=== PATIENT | male | born 1985 | race Caucasian/White ===

== ENCOUNTER 2016-10-30 11:43 | Day surgery (SDC) | payer OTHER ==
[2016-10-30] MEDS ORDERED: ONDANSETRON HCL IV 4 MG/2 ML VIAL IVP ONE ×2 (11:46→14:00)
[2016-10-30] MEDS ORDERED: 0.9 % SODIUM CHLORIDE 1,000 ML BAG IV ONE ×2 (11:46→12:36)
--- NOTE | 2016-10-30 11:51 | Emergency Department Record ---
History of Present Illness - General Chief Complaint: Abdominal Pain Stated Complaint: ABD PAIN Time Seen by Provider: 10/30/16 11:45 Source: Patient Mode of Arrival: Ambulatory - History of Present Illness Initial Comments: 31yo male presents with nausea, vomiting, decreased appetite and RLQ pain. He was seen in the [facility] care and sent over for further evaluation. The onset of the symptoms was Sunday morning. He developed nausea, vomiting, and a mild pain in the RLQ. He did have one loose bowel movement at that time. The NV and pain have continued. No blood in either bowel movement or vomiting. No dysuria. MD Complaint: Abdominal pain -: Days(s) (2) Location: RLQ Radiation: RLQ Migration to: RLQ Severity: Moderate Quality: Aching Consistency: Constant Improves With: Rest Worsens With: Eating Associated Symptoms: Anorexia, Vomiting - Related Data Home Medications Medication Instructions Recorded Confirmed Last Taken No Home Med [NO HOME MEDS] 10/30/16 10/30/16 Unknown Allergies Allergy/AdvReac Type Severity Reaction Status Date / Time No Known Drug Allergies Allergy Verified 10/30/16 11:46 Review of Systems Constitutional: Reports: Fever (subjectively felt warm), Malaise. Denies: Chills Eyes: Denies: Eye discharge, Eye pain, Photophobia, Vision change ENT: Denies: Congestion, Throat pain Respiratory: Denies: Cough, Dyspnea, Hemoptysis, Stridor, Wheezes Cardiovascular: Denies: Chest pain, Palpitations, Syncope Endocrine: Reports: Fatigue Gastrointestinal: Reports: Abdominal pain, Diarrhea (once Sunday), Nausea, Vomiting Genitourinary: Denies: Dysuria, Frequency Musculoskeletal: Denies: Arthralgia, Back pain, Joint swelling, Myalgia Skin: Denies: Bruising, Change in color, Rash Neurological: Denies: Headache Psychiatric: Denies: Anxiety Hematological/Lymphatic: Denies: Blood Clots, Easy bleeding, Easy bruising, Swollen glands Past Medical History - SOCIAL HISTORY Smoking Status: Never smoker Alcohol Use: Occasional Drug Use: None - RESPIRATORY Hx Respiratory Disorders: No - CARDIOVASCULAR Hx Cardio Disorders: No - NEURO Hx Neuro Disorders: No - GI Hx GI Disorders: No - Hx Genitourinary Disorders: No - ENDOCRINE Hx Endocrine Disorders: No - MUSCULOSKELETAL Hx Musculoskeletal Disorders: No - PSYCH Hx Psych Problems: No - HEMATOLOGY/ONCOLOGY Hx Hematology/Oncology Disorders: No Family Medical History Any Significant Family History?: No Physical Exam - General General Appearance: Alert, Oriented x3, Cooperative, No acute distress Limitations: No limitations - Head Head exam: Normal inspection - Eye Eye exam: Normal appearance, PERRL. negative: Conjunctival injection, Periorbital swelling - ENT ENT exam: Normal exam Ear exam: Normal external inspection Nasal Exam: Normal inspection Mouth exam: Normal external inspection - Neck Neck exam: Normal inspection, Full ROM. negative: Tenderness - Respiratory Respiratory exam: Normal lung sounds bilaterally. negative: Respiratory distress - Cardiovascular Cardiovascular Exam: Regular rate, Normal rhythm, Normal heart sounds - GI/Abdominal GI/Abdominal exam: Soft, Guarding (RLQ), Tenderness (RLQ), Other (abdomen is very soft and non distended). negative: Distended - Rectal Rectal exam: Deferred - exam: Deferred - Extremities Extremities exam: Normal inspection, Full ROM, Normal capillary refill. negative: Tenderness - Back Back exam: Reports: Normal inspection, Full ROM. Denies: CVA tenderness (R), CVA tenderness (L), Muscle spasm, Rash noted, Tenderness - Neurological Neurological exam: Alert, Normal gait, Oriented X3 - Psychiatric Psychiatric exam: Normal affect, Normal mood - Skin Skin exam: Dry, Intact, Normal color, Warm Course - Reevaluation(s) Reevaluation #1: CT consistent with appendicitis without abscess. 10/30/16 12:35 Reevaluation #2: Dr Sierra has admitted the patient to the OR for acute appendicitis 10/30/16 12:45 Disposition Disposition: Admit Clinical Impression: Appendicitis Disposition: Still a Patient at [facility] Decision to Admit: Admit from ER Decision to Admit Date: 10/30/16 Decision to Admit Time: 12:36 Condition: (2) Stable Forms: Patient Portal Access Time of Disposition: 12:36 Quality - Quality Measures Quality Measures: N/A - Blood Pressure Screening View Details: Yes Blood Pressure Classification: Normal BP Reading Systolic Measurement: 117 Diastolic Measurement: 65 Screening for High Blood Pressure: < Normal BP, F/U Not Required > [G8783] Normal BP Follow-up Interventions: No follow-up required Pre-Hypertensive Follow-up Interventions: Referral to alternative/primary care provider.
[2016-10-30 12:19] LABS: URINE APPEARANCE CLEAR; URINE COLOR YELLOW
[2016-10-30 12:20] LABS: URINE BILIRUBIN NEGATIVE (NEGATIVE); URINE BLOOD NEGATIVE (NEGATIVE); URINE GLUCOSE (UA) NEGATIVE (NEGATIVE); URINE KETONE NEGATIVE (NEGATIVE); URINE LEUKOCYTE ESTERASE NEGATIVE (NEGATIVE); URINE NITRITE NEGATIVE (NEGATIVE); URINE PROTEIN NEGATIVE (NEGATIVE); URINE UROBILINOGEN 0.2 E.U./dL (0.20 - 1.00)
[2016-10-30] MEDS ORDERED: ERTAPENEM SODIUM 1 G in 0.9 % SODIUM CHLORIDE 100ML 100 ML IVPB ONE (12:33)
[2016-10-30] MEDS ORDERED: BUPIVACAINE 0.25% W/EPI MPF 30ML VIAL IVP ONE (14:00)
[2016-10-30] MEDS ORDERED: ROCURONIUM BROMIDE 50MG/5ML VIAL IV ONE (14:00)
[2016-10-30] MEDS ORDERED: MIDAZOLAM HCL 2MG/2ML VIAL IV ONE (14:00)
[2016-10-30] MEDS ORDERED: NEOSTIGMINE 1 MG/1 ML,10ML VIAL IV ONE (14:00)
[2016-10-30] MEDS ORDERED: LIDOCAINE 2% MDV (20MG/ML) 20ML VIAL IV ONE (14:00)
[2016-10-30] MEDS ORDERED: PROPOFOL 10 MG/ML VIAL IV ONE (14:00)
[2016-10-30] MEDS ORDERED: SEVOFLURANE 250 ML INH ONE (14:00)
[2016-10-30] MEDS ORDERED: FENTANYL PF 100MCG/2ML VIAL IV ONE (14:00)
[2016-10-30] MEDS ORDERED: GLYCOPYRROLATE 0.2 MG/ML ML IV ONE (14:00)
[2016-10-30] MEDS ORDERED: KETOROLAC 30 MG/ML VIAL IVP ONE (14:00)
[2016-10-30] MEDS ORDERED: SUCCINYLCHOLINE 20 MG/ML 10ML IVP ONE (14:00)
--- NOTE | 2016-10-31 20:18 | CT SCAN REPORT ---
EXAM: CT SCAN ABDOMEN/PELVIS WO CONTRAST HISTORY: RIGHT LOWER QUADRANT PAIN FOR THREE DAYS, NO BOWEL MOVEMENT IN THREE DAYS. NAUSEA AND VOMITING. ELEVATED WHITE BLOOD COUNT. TECHNIQUE: AXIAL CT SCAN OF THE ABDOMEN AND PELVIS PERFORMED WITHOUT ORAL OR IV CONTRAST AT THE REFERRING PHYSICIANS REQUEST. COMPARISON: NO PRIOR CT WITH WHICH TO COMPARE. FINDINGS: No calcified gallstones are seen within the gallbladder. There is a small calcification in the lower pole of the left kidney consistent with a single small nonobstructing intrarenal calculus. No hydronephrosis or hydroureter seen on either side with no ureteral calculus seen on either side and no bladder calculus evident. Evaluation of the bowel and viscera are very limited without oral or IV contrast. Given this limitation, no definite hepatic, splenic, adrenal, pancreatic, or renal mass identified. I believe the appendix is identified, appearing dilated measuring up to approximately 13 mm in diameter and there is considerable stranding in the adjacent soft tissues. Findings are consistent with acute appendicitis. There is some minimally prominent mesenteric nodes in the right lower quadrant, which are probably reactive. There is some mild patchy bibasilar streaky atelectasis or infiltrate. No basilar pneumothorax evident. There is an approximately 2.9 x 1.7 cm oval low-attenuation mass along the anterior aspect of the left upper quadrant, probably abutting the anterior peritoneum. This has a CT density of 2, although is incompletely evaluated without IV contrast. Given its oval low-attenuation appearance, this may just be an incidental cyst in this location. No free intraperitoneal air or free intraperitoneal fluid identified. Very small periumbilical anterior abdominal wall hernia containing adipose tissue but no bowel. IMPRESSION: 1. FINDINGS CONSISTENT WITH ACUTE APPENDICITIS. THERE ARE LIKELY SOME MILDLY PROMINENT REACTIVE RIGHT LOWER QUADRANT MESENTERIC NODES WELL. 2. SINGLE NONOBSTRUCTING LOWER POLE LEFT RENAL CALCULUS. 3. OVAL 2.9 X 2.7 CM LOW-ATTENUATION MASS ALONG THE ANTERIOR PERITONEUM IN THE LEFT UPPER QUADRANT, INCOMPLETELY EVALUATED, ALTHOUGH IT MAY JUST BE AN INCIDENTAL MESENTERIC CYST. 4. MILD BIBASILAR STREAKY ATELECTASIS OR INFILTRATE. JOB NUMBER: [id number] MTDD
--- NOTE | 2016-11-02 09:36 | Operative Note ---
DATE OF SURGERY: 10/30/2016 Surgeon: Devon Sierra DO Referring physician: Galina Taveras MD PREOPERATIVE DIAGNOSIS: Acute appendicitis. POSTOPERATIVE DIAGNOSIS: Acute appendicitis. OPERATION: Laparoscopic appendectomy. Anesthesia: General. Indication: The patient is a 31-year-old male who has had abdominal pain for about three days. This did settle in his right lower quadrant. Imaging studies as well as laboratory values were consistent with appendicitis. The patient had leukocytosis and CT scan findings consistent with the same. We did discuss appendectomy risks, benefits, and alternatives. The risks include bleeding, infection, postoperative abscess, injury to underlying visceral structures. He understood this fully. Therefore, consent was signed, questions were answered. PROCEDURE: He was taken to the operating room and placed in the supine position. General anesthesia was administered per the Department of Anesthesia. The patient's left arm was tucked to his side. His abdomen was shaved of hair and prepped and draped in the usual fashion. At this time adequate time-out was performed. He did receive preoperative antibiotics as well as . At this time, the infraumbilical region was anesthetized with a total of 5 mL of 0.25% Sensorcaine with epinephrine. A 2 cm infraumbilical incision was made. This was carried down to the anterior rectus fascia, this is excised. Carlos clamps were placed on the fascial edges and brought up into the wound. Stay stitches of 0 Vicryl placed. The posterior rectus sheath was identified and incised and the peritoneal cavity was entered bluntly. At this time, a 10 mm blunt Andreas port was placed and after pneumoperitoneum was established, under direct visualization an additional 5 mm right subcostal and a 5 mm suprapubic port placed. The patient was then rotated in Trendelenburg position, rotation to the left. General examination was done. The patient had dense inflammatory changes in the right mid abdomen. He had a retrocecal appendix which did require me taking down the lateral peritoneal in the right colon. Due to the patient's body habitus, I still had trouble seeing, therefore, an additional 5 mm port was placed. I was able to retract the colon medially, exposing the appendix and the mesoappendix. The mid part of the appendix was necrotic without rupture. This was then lifted anteriorly. The mesoappendix was taken down serially with the Brennon harmonic until the appendicial base was reached. This was transected with the Endo ALFONZO 60 mm stapling device. This was then placed in an EndoCatch bag and brought out infraumbilically. The right side was re-inspected, this was then irrigated and suctioned freely with about 500 mL of sterile saline. I did apply a FloSeal where I did mobilize the colon, due to some mild oozing. At this time, the patient did have a cyst, which was noted on CT scan just to the left of his falciform ligament. This was fluid filled and spongy. I did use the Brennon harmonic to drain this. This did completely resolve. At this time, the patient leveled out. Pneumoperitoneum was released. All ports removed, and the fascia was closed with 0 Vicryl in a [id number] fashion. The skin of all four ports closed with 4-0 Vicryl. He was taken to the recovery room in satisfactory condition. FINDINGS AT THE TIME OF SURGERY: Acute appendicitis. CC: Dr. Galina OBRIEN
== END 2016-10-30 15:05 | disposition home or self-care (01) ==
LOC: SUR 11:43 → ER 11:43 → EDSTATUS 12:50 → SUR 15:05
PROVIDERS: ATTEND Surgery
DX: K35.89 Other acute appendicitis (principal)
CPT/HCPCS: 99285 ×2; 96374; 96375; 96361; 81003; 74176; 44970; 00840; J1335; J1885; J2405; J3010; J0330; J2710; J7030

== ENCOUNTER 2018-02-19 08:52 | Emergency (ER) | payer MEDICAID, OTHER ==
[2018-02-19] MEDS ORDERED: ONDANSETRON HCL IV 4 MG/2 ML VIAL IV ONE (09:14)
[2018-02-19] MEDS ORDERED: 0.9 % SODIUM CHLORIDE 1,000 ML BAG IV ONE (09:14)
[2018-02-19 09:24] LABS: BASO % 0.4 % (0-6); EOS % 1.7 % (0-6); HEMATOCRIT 46.6 % (42.0-52.0); HEMOGLOBIN 15.6 gm/dl (14.0-18.0); LYMPH % 38.7 % (16-45); MEAN CELL VOLUME 86.5 fl (81-97); MEAN CORPUSCULAR HEMOGLOBIN 28.9 pg (27-33); MEAN CORPUSCULAR HGB CONC 33.5 g/dl (32-36); MEAN PLATELET VOLUME 10.6 fl (7.4-10.4); MONO % 9.2 % (0-9); PLATELET COUNT 321 K/uL (130-400); RED BLOOD COUNT 5.39 M/uL (4.40-5.70); RED CELL DISTRIBUTION WIDTH 13.1 % (11.5-14.5); WHITE BLOOD COUNT W/O DIFF 8.5 K/uL (4.2-12.2)
[2018-02-19 09:33] LABS: BLOOD UREA NITROGEN 14 mg/dL (6-20); EST GLOMERULAR FILTRATION RATE > 60 mL/min
[2018-02-19 09:36] LABS: GLUCOSE,RANDOM 127 mg/dL (74-109)
--- NOTE | 2018-02-19 09:38 | Emergency Department Record ---
History of Present Illness - General Chief Complaint: Abdominal Pain Stated Complaint: ABD PAIN Time Seen by Provider: 02/19/18 09:06 Source: Patient Mode of Arrival: Ambulatory Limitations: No limitations - History of Present Illness Initial Comments: pt had asudden onset of llq pain 2hrs [employer]. he vomited x2 and had a normal bm. pain is constant. MD Complaint: Abdominal pain Onset/Timin -: Hour(s) Location: LLQ Radiation: None Migration to: No migration Severity scale (1-10): 10 Quality: Sharp Consistency: Constant Improves With: Nothing Worsens With: Nothing Associated Symptoms: Nausea, Vomiting - Related Data Previous Rx's Medication Instructions Recorded Hydrocodone/Acetaminophen [Monroe 1 each PO Q6HR #10 tablet 02/19/18 5-325 Tablet] Ondansetron [Zofran Odt] 4 mg PO Q8H #10 tab.rapdis 02/19/18 Allergies Allergy/AdvReac Type Severity Reaction Status Date / Time No Known Drug Allergies Allergy Verified 10/30/16 11:46 Travel Screening - Travel/Exposure Within Last 30 Days Have you traveled within the last 30 days?: No Review of Systems Reviewed: No additional complaints except as noted below Constitutional: Reports: As per HPI. Denies: Chills, Fever, Malaise, Night sweats, Weakness, Weight change Eyes: Reports: As per HPI. Denies: Eye discharge, Eye pain, Photophobia, Vision change ENT: Reports: As per HPI. Denies: Congestion, Dental pain, Ear pain, Epistaxis , Hearing loss, Throat pain Respiratory: Reports: As per HPI. Denies: Cough, Dyspnea, Hemoptysis, Stridor, Wheezes Cardiovascular: Reports: As per HPI. Denies: Arrhythmia, Chest pain, Dyspnea on exertion, Edema, Murmurs, Orthopnea, Palpitations, Paroxysmal nocturnal dyspnea, Rheumatic Fever, Syncope Endocrine: Reports: As per HPI. Denies: Fatigue, Heat or cold intolerance, Polydipsia, Polyuria Gastrointestinal: Reports: As per HPI, Abdominal pain, Vomiting. Denies: Constipation, Diarrhea, Hematemesis, Hematochezia, Melena, Nausea Genitourinary: Reports: As per HPI. Denies: Dysuria, Frequency, Hematuria, Incontinence, Retention, Testicular pain, Testicular mass, Urgency Musculoskeletal: Reports: As per HPI. Denies: Arthralgia, Back pain, Gout, Joint swelling, Myalgia, Neck pain Skin: Reports: As per HPI. Denies: Bruising, Change in color, Change in hair/ nails, Lesions, Pruritus, Rash Neurological: Reports: As per HPI. Denies: Abnormal gait, Confusion, Headache, Numbness, Paresthesias, Seizure, Tingling, Tremors, Vertigo, Weakness Psychiatric: Reports: As per HPI. Denies: Anxiety, Auditory hallucinations, Depression, Homicidal thoughts, Suicidal thoughts, Visual hallucinations Hematological/Lymphatic: Reports: As per HPI. Denies: Anemia, Blood Clots, Easy bleeding, Easy bruising, Swollen glands Past Medical History - SOCIAL HISTORY Smoking Status: Never smoker - RESPIRATORY Hx Respiratory Disorders: No - CARDIOVASCULAR Hx Cardio Disorders: No - NEURO Hx Neuro Disorders: No - GI Hx GI Disorders: Yes Hx Abdominal Pain: Yes (Sharp RMQ since 10/28) Hx Nausea/Vomiting: Yes (Since 10/28) Comment:: Fatty liver found with muscle strain, Diarrhea on 10/28 - Hx Genitourinary Disorders: No - ENDOCRINE Hx Endocrine Disorders: No - MUSCULOSKELETAL Hx Musculoskeletal Disorders: No - PSYCH Hx Psych Problems: No - HEMATOLOGY/ONCOLOGY Hx Hematology/Oncology Disorders: No Family Medical History Any Significant Family History?: No Physical Exam - General General Appearance: Alert, Oriented x3, Cooperative, Mild distress - Head Head exam: Normal inspection - Eye Eye exam: Normal appearance, PERRL, EOMI Pupils: Normal accommodation - ENT ENT exam: Normal exam, Mucous membranes moist, Normal external ear exam, Normal orophraynx Ear exam: Normal external inspection. negative: External canal tenderness Nasal Exam: Normal inspection. negative: Discharge, Sinus tenderness Mouth exam: Normal external inspection, Tongue normal Teeth exam: Normal inspection. negative: Dental caries Throat exam: Normal inspection. negative: Tonsillar erythema, Tonsillar exudate - Neck Neck exam: Normal inspection, Full ROM. negative: Tenderness - Respiratory Respiratory exam: Normal lung sounds bilaterally. negative: Respiratory distress - Cardiovascular Cardiovascular Exam: Regular rate, Normal rhythm, Normal heart sounds - GI/Abdominal GI/Abdominal exam: Soft, Normal bowel sounds, Tenderness (llq) - Rectal Rectal exam: Deferred - exam: Deferred - Extremities Extremities exam: Normal inspection, Full ROM, Normal capillary refill. negative: Tenderness - Back Back exam: Reports: Normal inspection, Full ROM. Denies: Muscle spasm, Rash noted, Tenderness - Neurological Neurological exam: Alert, CN II-XII intact, Normal gait, Oriented X3 - Psychiatric Psychiatric exam: Normal affect, Normal mood - Skin Skin exam: Dry, Intact, Normal color, Warm Course Vital Signs 02/19/18 08:54 Temperature 97.3 F L Pulse Rate 67 Respiratory 18 Rate Blood Pressure 117/48 Pulse Ox 99 - Reevaluation(s) Reevaluation #1: 02/19/18 10:36 pt feels better Reevaluation #2: 02/19/18 11:56 pt feels much better. Medical Decision Making - Lab Data Result diagrams: 02/19/18 09:10 02/19/18 09:10 Lab Results 02/19/18 02/19/18 Range/Units 09:10 09:10 WBC 8.5 (4.2-12.2) K/uL RBC 5.39 (4.40-5.70) M/uL Hgb 15.6 (14.0-18.0) gm/dl Hct 46.6 (42.0-52.0) % MCV 86.5 (81-97) fl MCH 28.9 (27-33) pg MCHC 33.5 (32-36) g/dl RDW 13.1 (11.5-14.5) % Plt Count 321 (130-400) K/uL MPV 10.6 H (7.4-10.4) fl Gran % 50.0 (47-80) % Lymphocytes % 38.7 (16-45) % Monocytes % 9.2 H (0-9) % Eosinophils % 1.7 (0-6) % Basophils % 0.4 (0-6) % BUN 14 (6-20) mg/dL Creatinine 1.0 (0.7-1.2) mg/dL Estimated GFR > 60 mL/min Calcium 9.3 (8.6-10.0) mg/dL Disposition Disposition: Discharge Clinical Impression: Renal lithiasis Abdominal pain Qualifiers: Abdominal location: left lower quadrant Qualified Code(s): R10.32 - Left lower quadrant pain Vomiting Qualifiers: Vomiting type: unspecified Vomiting Intractability: non-intractable Nausea presence: with nausea Qualified Code(s): R11.2 - Nausea with vomiting, unspecified Hematuria Qualifiers: Hematuria type: unspecified type Qualified Code(s): R31.9 - Hematuria, unspecified Disposition: Home, Self-Care Condition: (1) Good Instructions: Kidney Stones (ED), How to Strain Your Urine (ED), Acute Nausea and Vomiting (ED), Hematuria (ED) Additional Instructions: follow up with family doctor and with urologist. push fluids. return sooner if worse Prescriptions: Hydrocodone/Acetaminophen [Monroe 5-325 Tablet] 1 each PO Q6HR #10 tablet Ondansetron [Zofran Odt] 4 mg PO Q8H #10 tab.rapdis Referrals: FLAQUITO CHOWDARY M.D. [MEDICAL DOCTOR] - [facility] [Provider Group] Forms: Patient Portal Access Quality - Quality Measures Quality Measures: N/A - Blood Pressure Screening Does Patient Have Any of the Following: No Blood Pressure Classification: Normal BP Reading Systolic Measurement: 117 Diastolic Measurement: 48 Screening for High Blood Pressure: < Normal BP, F/U Not Required > [G8783]
[2018-02-19] MEDS ORDERED: ONDANSETRON HCL IV 4 MG/2 ML VIAL IVP ONE (09:59)
[2018-02-19 10:44] LABS: URINE APPEARANCE CLEAR; URINE BILIRUBIN NEGATIVE (NEGATIVE); URINE BLOOD LARGE (NEGATIVE); URINE COLOR YELLOW; URINE GLUCOSE (UA) NEGATIVE (NEGATIVE); URINE KETONE NEGATIVE (NEGATIVE); URINE LEUKOCYTE ESTERASE NEGATIVE (NEGATIVE); URINE NITRITE NEGATIVE (NEGATIVE); URINE PROTEIN TRACE (NEGATIVE); URINE UROBILINOGEN 0.2 E.U./dL (0.20 - 1.00)
[2018-02-19 10:53] LABS: URINE EPITHELIAL CELLS 0 - 2 (FEW); URINE MUCUS LIGHT; URINE RBC 21 - 35 (NONE SEEN); URINE WBC NONE SEEN (0-2/hpf)
[2018-02-19] MEDS ORDERED: KETOROLAC 30 MG/ML VIAL IVP ONE (11:02)
[2018-02-19] MEDS ORDERED: PROMETHAZINE HCL 12.5 MG in 0.9 % SODIUM CHLORIDE 100ML 100 ML IVPB ONE (11:02)
--- NOTE | 2018-02-19 13:04 | CT SCAN REPORT ---
EXAM: CT OF THE ABDOMEN AND PELVIS WITHOUT CONTRAST HISTORY: ABDOMINAL PAIN. TECHNIQUE: Sequential axial images were obtained from the diaphragms through the ischiorectal fossa without intravenous or oral contrast administration. Comparison: 10/30/16. FINDINGS: The visualized lung bases appear normal. There is cardiomegaly without pericardial effusion. The liver, gallbladder, pancreas and spleen appear normal. The adrenal glands and kidneys appear normal. There is a nonobstructing calculus in the left renal pelvis measuring 3 mm. No additional calculi are appreciated. Postop surgical change consistent with appendectomy. Small and large bowel appears normal. The osseous structures are normal. IMPRESSION: 3 MM NONOBSTRUCTING CALCULUS IN THE LEFT RENAL PELVIS. NO ADDITIONAL CALCULI ARE APPRECIATED. JOB NUMBER: [id number] MTDD
== END 2018-02-19 12:18 | disposition home or self-care (01) ==
LOC: ER 08:52
DX: N20.0 Calculus of kidney (principal); R11.2 Nausea with vomiting, unspecified; R10.32 Left lower quadrant pain
CPT/HCPCS: 74176; 80048; 81001; 85025; 96374; 96375; 96376; 99284; J1885; J2405; J2550; J7030